=== PATIENT | male | born 1950 | race Caucasian/White ===

== ENCOUNTER 2021-09-02 07:28 | Day surgery (SDC) | payer MEDICARE ==
[2021-08-29 15:14] VITALS: BMI 35.9
[~2021-09-02 07:28] MED LIST: LACTATED RINGERS 1,000 ML IV SCH; LIDOCAINE 1% (10MG/ML) FOR IV START INTRADERMA PRN
[2021-09-02 08:20] VITALS: TEMP 97.5
[2021-09-02] MEDS ORDERED: PROPOFOL 10 MG/ML 20 ML VIAL IV ONE (09:11)
[2021-09-02] MEDS ORDERED: LIDOCAINE 2% INJ 20 MG/ML (2 ML VIAL) ONE (09:11)
--- NOTE | 2021-09-02 09:33 | P.PCN ---
Date of Procedure: 09/02/21 Procedure(s) Performed: BRIEF HISTORY: Patient is a 71-year-old pleasant male scheduled for an elective colonoscopy as a part of screening for colorectal neoplasia. PROCEDURE PERFORMED: Colonoscopy with biopsy. PREOPERATIVE DIAGNOSIS: Screening for colon cancer. IV sedation per Anesthesia. PROCEDURE: After informed consent was obtained, the patient, was brought into the endoscopy unit. IV sedation was administered by Anesthesia under continuous monitoring. Digital rectal examination was normal. Initially the Olympus CF-160 flexible video colonoscope was then inserted in the rectum, gradually advanced into the cecum without any difficulty. Careful examination was performed as the scope was gradually being withdrawn. Ileocecal valve and the appendiceal orifice were visualized and appeared normal. Prep was excellent. Mucosa of the cecum, ascending colon, transverse colon, appeared normal. The descending colon there was a 3 mm sessile polyp removed by cold biopsy. Rest of the descending colon, sigmoid colon, and rectum appeared normal. Scattered sigmoid diverticulosis. Retroflexion was performed in the rectum and no lesions were seen. The patient tolerated the procedure well. IMPRESSION: 3 mm descending colon polyp status post cold biopsy Rest of the colon appeared normal Scattered sigmoid diverticulosis. RECOMMENDATIONS: Findings of this examination were discussed with the patient as well as his family. He was advised to follow with the biopsy results. If the biopsy results adenoma he can have a repeat colonoscopy in 5 years..
[2021-09-02 09:53] VITALS: BP 108/72; PULSE 53; RESP 16
== END 2021-09-02 10:08 | disposition home or self-care (01) ==
LOC: ORWHC2ENDO 07:28
PROVIDERS: ATTEND Internal Medicine Gastroenterology
DX: Z12.11 Encounter for screening for malignant neoplasm of colon (principal); D12.4 Benign neoplasm of descending colon; K57.30 Diverticulosis of large intestine without perforation or abscess without bleeding
CPT/HCPCS: 45380; 88305; J2704; J2001

== ENCOUNTER → 2023-12-22 | Outpatient (CLI) | payer MEDICARE ==
[2023-12-22 09:33] LABS: African American GFR (CKD) >90 (>60 ml/min/1.73 sqM); Blood Urea Nitrogen 16 mg/dL (9-20); Non-African American GFR(CKD) >90 (>60 ml/min/1.73 sqM)
--- NOTE | 2023-12-22 11:38 | CT ---
EXAMINATION TYPE: CT angio chest CT DLP: 1122 mGycm, Automated exposure control for dose reduction was used. 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 MIP images are created and reviewed. FINDINGS: Lungs/Pleura: No evidence of focal consolidation, pleural effusion or pneumothorax. Few paraseptal em physematous changes. Airway: Large airways are patent. Heart: Mildly enlarged. No pericardial effusion. Moderate coronary arterial calcifications. Vasculature: Bovine aortic arch. Stable aneurysmal dilatation of the aortic root measuring up to 4.2 cm, previously 4.1 cm. Stable aneurysm dilatation of the descending thoracic aorta measuring 4.3 cm, previously 4.3 cm. Stable ectasia of the upper descending thoracic aorta measuring 3.6 cm, previously 3.5 cm. Stable lower descending thoracic aorta measuring 3.1 cm, previously 3.2 cm. No evidence intr amural hematoma or dissection. Mild to moderate atherosclerotic calcification of the aorta and its br anches. Pulmonary artery is normal in caliber. No filling defect to suggest pulmonary embolism. Mediastinum: No evidence of adenopathy. Musculoskeletal: No acute osseous abnormalities. Mild degenerative changes of the spine. Soft Tissues: Mild bilateral gynecomastia. Lower neck: No significant findings. Upper Abdomen: Nonobstructive left renal 4 mm calculus. IMPRESSION: 1. Stable aneurysmal dilatation of the aortic root and descending thoracic aorta dating back to 2013. No evidence for intramural hematoma or dissection. 2. Nonobstructive left renal calculus. [facility], , 12/22/2023 11:36 AM
== END | disposition home or self-care (01) ==
LOC: RADCTMAIN 08:40
PROVIDERS: ATTEND Internal Medicine
DX: I71.21 Aneurysm of the ascending aorta, without rupture
CPT/HCPCS: 36415; 71275; 82565; 84520